=== PATIENT | female | born 1975 ===

== ENCOUNTER 2018-08-08 00:06 | Emergency (ER) | payer SELFPAY ==
[2018-08-08 00:55] VITALS: RESP 18
--- NOTE | 2018-08-08 01:12 | ED PDOC ---
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 Denies fever, headache, dizziness, nausea/vomiting, chest pain, shortness of breath, palpitations, abdominal/pelvic pain, urinary symptoms. Abnormal Vaginal Bleeding: Yes Last Menstral Period: 06/18/18 : 3 Para: 2 Past Medical History Reviewed: Historical Data, Nursing Documentation, Vital Signs Vital Signs: Last Vital Signs Temp 98.4 F 08/08/18 00:53 Pulse 78 08/08/18 00:53 Resp 18 08/08/18 00:53 BP 133/74 08/08/18 00:53 Pulse Ox 99 08/08/18 00:53 - Medical History PMH: No Chronic Diseases - Surgical History Surgical History: No Surg Hx - Family History Family History: States: No Known Family Hx - Living Arrangements Living Arrangements: With Family - Immunization History Hx Tetanus Toxoid Vaccination: No Hx Influenza Vaccination: No Hx Pneumococcal Vaccination: No - Home Medications Home Medications: Ambulatory Orders Medication Instructions Recorded Acetaminophen [Tylenol] 650 mg PO Q4 PRN #20 tab 05/08/15 - Allergies Allergies/Adverse Reactions: Allergies Allergy/AdvReac Type Severity Reaction Status Date / Time No Known Allergies Allergy Unverified 05/08/15 19:10 Review of Systems ROS Statement: Except As Marked, All Systems Reviewed And Found Negative Genitourinary Female: Positive for: Vaginal Bleeding Physical Exam - Reviewed Nursing Documentation Reviewed: Yes Vital Signs Reviewed: Yes - Physical Exam Appears: Positive for: Well, Non-toxic, No Acute Distress Head Exam: Positive for: ATRAUMATIC, NORMAL INSPECTION, NORMOCEPHALIC Skin: Positive for: Normal Color Eye Exam: Positive for: Normal appearance ENT: Positive for: Normal ENT Inspection Cardiovascular/Chest: Positive for: Regular Rate, Rhythm Respiratory: Positive for: Normal Breath Sounds Gastrointestinal/Abdominal: Positive for: Bowel Sounds, Soft. Negative for: Tenderness Pelvic Exam: Positive for: External Exam Normal, No Cerv. 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
[2018-08-08 02:32] LABS: BASO # 0.1 K/uL (0.0-0.2); BASO % 0.9 % (0.0-2.0); EOS # 0.4 K/uL (0.0-0.7); HEMOGLOBIN 12.7 g/dL (12.0-16.0); LYMPH # 2.5 K/uL (1.0-4.3); LYMPH % 24.8 % (20.0-40.0); MEAN CELL VOLUME 84.8 fl (81.0-99.0); MEAN CORPUSCULAR HEMOGLOBIN 28.5 pg (27.0-31.0); MEAN CORPUSCULAR HGB CONC 33.6 g/dL (33.0-37.0); MEAN PLATELET VOLUME 7.4 fl (7.2-11.7); MONO % 9.9 % (0.0-10.0); NEUT % 60.4 % (50.0-75.0); NRBC % 0.1 % (0.0-0.0); RBC 4.44 Mil/uL (3.80-5.20); RED CELL DISTRIBUTION WIDTH 14.1 % (11.5-14.5); WHITE BLOOD COUNT 9.9 K/uL (4.8-10.8)
[2018-08-08 02:41] LABS: ALB/GLOB RATIO 1.2 (1.0-2.1); ALBUMIN 3.7 g/dL (3.5-5.0); ALT/SGPT 21 U/L (9-52); AST/SGOT 18 U/L (14-36); BLOOD UREA NITROGEN 13 mg/dl (7-17); CALCIUM 8.5 mg/dL (8.4-10.2); GFR NON-AFRICAN AMERICAN > 60
[2018-08-08 05:44] VITALS: BP 122/68; PULSE 71; TEMP 98.2; O2SAT 100
--- NOTE | 2018-08-08 12:18 | US ---
Date of service: 08/08/2018 PROCEDURE: First trimester ultrasound HISTORY: and bleeding. B-HCG results are pending COMPARISON: None TECHNIQUE: Transvaginal only. Real -time technique with 2D, duplex and color Doppler FINDINGS: LMP: 06/18/2018 Prior examinations from the current : None. TECHNIQUE: Real-time 2D imaging, duplex and color Doppler. FINDINGS: Cardiac activity: Present Rate: 142 BPM Measurements: Ship Bottom rump length: 0.91 cm Gestational age based on CRL 6 weeks 6 days Gestational age 6 weeks 2 days based on gestational sac measurement 1.85 cm Gestational age derived from LMP: 7 weeks 2 days TONY based on LMP: 03/25/2019 TONY based on biometry: 03/30/2019. Gestational concordance documented Yolk sac identified Cervix: No Cervical abnormalities: Negative examination for cervical dilatation or effacement. Closed cervix measuring 4.05 cm Subchorionic hemorrhage: None UTERUS: 5.4 x 6.8 x 9.2 cm. ADNEXA: Right: 1.6 x 2.2 x 3.2 cm. Normal Doppler arterial waveform documented. Left: 1.5 x 2.4 x 2.4 cm. Normal Doppler arterial waveform documented Fluid in the cul-de-sac: None IMPRESSION: Six weeks 4 days live intrauterine gestation. Gestational concordance documented. Concordant results (preliminary interpretation) provided by [facility]. Procedure Completed: 01:46. Preliminary Report: Dictated and Authenticated: 03:06. Final Interpretation: 12:16. August 08, 2018
== END 2018-08-08 05:03 | disposition home or self-care (01) ==
LOC: H.ER 00:06
DX: O20.9 Hemorrhage in early pregnancy, unspecified (principal); Z3A.01 Less than 8 weeks gestation of pregnancy

== ENCOUNTER 2018-08-26 18:33 | Emergency (ER) | payer OTHER ==
[2018-08-26 18:56] VITALS: RESP 16
[2018-08-26] MEDS ORDERED: Sodium Chloride 0.9% 1,000 ML IV STA (19:13)
--- NOTE | 2018-08-26 19:15 | ED PDOC ---
HPI: Female Pain Time Seen by Provider: 08/26/18 19:08 Chief Complaint (Nursing): Female Genitourinary Chief Complaint (Provider): with vaginal bleeding History Per: Patient Additional Complaint(s): 42-year-old female currently 8 weeks presents with vaginal bleeding that started about 1 hour prior to arrival. Patient also has associated cramping pain. Patient's last menstrual cycle was June 18. Patient denies nausea or vomiting. This is her third and she has 2 children. No history of ectopic pregnancies or miscarriages. PMD: none Past Medical History Reviewed: Historical Data, Nursing Documentation, Vital Signs Vital Signs: Last Vital Signs Temp 98.8 F 08/26/18 18:52 Pulse 87 08/26/18 18:52 Resp 16 08/26/18 18:52 BP 147/89 08/26/18 18:52 Pulse Ox 100 08/26/18 18:52 - Medical History PMH: No Chronic Diseases - Surgical History Surgical History: No Surg Hx - Family History Family History: States: No Known Family Hx - Living Arrangements Living Arrangements: With Family - Social History Current smoker - smoking cessation education provided: No Alcohol: None Drugs: Denies - Home Medications Home Medications: Ambulatory Orders Medication Instructions Recorded Acetaminophen [Tylenol] 650 mg PO Q4 PRN #20 tab 05/08/15 - Allergies Allergies/Adverse Reactions: Allergies Allergy/AdvReac Type Severity Reaction Status Date / Time No Known Allergies Allergy Verified 08/26/18 18:52 Review of Systems ROS Statement: Except As Marked, All Systems Reviewed And Found Negative Genitourinary Female: Positive for: Vaginal Bleeding, Pelvic Pain. Negative for: Dysuria Physical Exam - Reviewed Nursing Documentation Reviewed: Yes Vital Signs Reviewed: Yes - Physical Exam Appears: Positive for: Well, Non-toxic, No Acute Distress Skin: Positive for: Normal Color. Negative for: Rash Eye Exam: Positive for: Normal appearance Cardiovascular/Chest: Positive for: Regular Rate, Rhythm Respiratory: Positive for: Normal Breath Sounds. Negative for: Wheezing, Respiratory Distress Gastrointestinal/Abdominal: Positive for: Soft. Negative for: Tenderness Back: Negative for: L CVA Tenderness, R CVA Tenderness Extremity: Positive for: Normal ROM Neurologic/Psych: Positive for: Alert, Oriented - ECG O2 Sat by Pulse Oximetry: 100 Pulse Ox Interpretation: Normal Medical Decision Making Medical Decision Makin-year-old female currently 8 weeks with vaginal bleeding Plan: CBC CMP Beta Urine test Urine dip TV OB US IVF Disposition - Clinical Impression Clinical Impression: Vaginal bleeding during - Patient ED Disposition Is Patient to be Admitted: Transfer of Care - Disposition Disposition: Transfer of Care Disposition Time: 20:00 Condition: FAIR Forms: [facility] (Swedish) Patient Signed Over To: Fabrizio Bejarano Handoff Comments: Signed out pending diagnostic testing results and final disposition
[2018-08-26 20:02] LABS: BASO # 0.1 K/uL (0.0-0.2); BASO % 0.9 % (0.0-2.0); EOS # 0.4 K/uL (0.0-0.7); EOS % 2.9 % (0.0-4.0); LYMPH # 2.4 K/uL (1.0-4.3); LYMPH % 19.3 % (20.0-40.0); MEAN CORPUSCULAR HEMOGLOBIN 28.5 pg (27.0-31.0); MEAN CORPUSCULAR HGB CONC 33.1 g/dL (33.0-37.0); MEAN PLATELET VOLUME 7.2 fl (7.2-11.7); MONO # 0.9 K/uL (0.0-0.8); MONO % 7.1 % (0.0-10.0); NEUT # 8.7 K/uL (1.8-7.0); NEUT % 69.8 % (50.0-75.0); RBC 4.55 Mil/uL (3.80-5.20); RED CELL DISTRIBUTION WIDTH 14.6 % (11.5-14.5); WHITE BLOOD COUNT 12.4 K/uL (4.8-10.8)
[2018-08-26 20:05] LABS: ALBUMIN 3.7 g/dL (3.5-5.0); ALT/SGPT 21 U/L (9-52); AST/SGOT 18 U/L (14-36); BLOOD UREA NITROGEN 12 mg/dl (7-17); CALCIUM 8.8 mg/dL (8.4-10.2); GFR NON-AFRICAN AMERICAN > 60
[2018-08-26 20:43] LABS: URINE BILIRUBIN NEGATIVE (NEGATIVE); URINE BLOOD LARGE (NEGATIVE); URINE CLARITY CLOUDY (Clear); URINE COLOR RED (YELLOW); URINE GLUCOSE (UA) NEG (Normal); URINE LEUKOCYTE ESTERASE NEG Leu/uL (Negative); URINE PROTEIN 100 mg/dL (NEGATIVE); URINE UROBILINOGEN 0.2-1.0 mg/dL (0.2-1.0); WBC CLUMPS MOD /hpf
[2018-08-26 20:47] LABS: URINE AMORPHOUS SEDIMENT SMALL /ul (<OCC)
--- NOTE | 2018-08-26 21:05 | ED PDOC ---
- Laboratory Results Result Diagrams: 08/26/18 19:40 08/26/18 19:40 - ECG O2 Sat by Pulse Oximetry: 100 (RA) Pulse Ox Interpretation: Normal - Progress ED Course And Treament: OB US: No IUP Previous US showed IUP. BHCG has also decreased from last visit. Case d/w Dr. 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 go to her OBGYN and do weekly BHCGs. 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 Pt. informed of results and plan. Advised to f/u with her OBGYN for weekly repeat BHCG. Pt. verbalized understanding. Also told to return to ED immediately if pain worsens or if bleeding worsens. Medical Decision Making Medical Decision Making: Time: 1999 --Patient signed out to this provider, pending US and labs. On revaluation, patient requesting pain medications for abdominal cramping. Tylenol PO ordered. Scribe Attestation: Documented by Merlene Du, acting as a scribe for Fabrizio Bejarano PA-C Provider Scribe Attestation: All medical record entries made by the Scribe were at my direction and personally dictated by me. I have reviewed the chart and agree that the record accurately reflects my personal performance of the history, physical exam, medical decision making, and the department course for this patient. I have also personally directed, reviewed, and agree with the discharge instructions and disposition. Disposition - Clinical Impression Clinical Impression: Miscarriage - POA Present On Arrival: None - Disposition Referrals: [facility] [Outside] Disposition: Routine/Home Disposition Time: 00:25 Condition: STABLE Additional Instructions: FOLLOW UP WITH YOU OBGYN FOR WEEKLY BHCG TESTING. RETURN TO ED IMMEDIATELY IF SYMPTOMS WORSEN. KEVEN LUCERO, thank you for letting us take care of you today. Your provider was Huan Moss MD and you were treated for 8 WKS /VAGINAL BLEEDING. The emergency medical care you received today was directed at your acute symptoms. If you were prescribed any medication, please fill it and take as directed. It may take several days for your symptoms to resolve. Return to the Emergency Department if your symptoms worsen, do not improve, or if you have any other problems. Please contact your doctor or call one of the physicians/clinics you have been referred to that are listed on the Patient Visit Information form that is in cluded in your discharge packet. Bring any paperwork you were given at discharge with you along with any medications you are taking to your follow up visit. Our treatment cannot replace ongoing medical care by a primary care provider outside of the emergency department. Thank you for allowing the [facility] team to be part of your care today. If you had an X-Ray or CT scan: A Radiologist will review the ED reading if any change in treatment is needed we will contact you. If you had a blood, urine, or wound culture: It will take several days for the results, if any change in treatment is needed we will contact you. If you had an STI test: It will take 48 hours for the results. Please call after 1 week if you have not heard back. Instructions: Dealing With Miscarriage, Miscarriage (DC) Forms: [employer] (Kiswahili) Print Language: DANISH
[2018-08-27 01:07] VITALS: BP 141/68; PULSE 77; TEMP 99
[2018-08-27 03:07] VITALS: O2SAT 100
--- NOTE | 2018-08-27 10:09 | US ---
Date of service: 08/26/2018 PROCEDURE: OB Pelvic Ultrasound HISTORY: 8 weeks , vaginal bleeding LMP: 06/18/2018 Serum beta HCG 3788.5 COMPARISON: Pelvic ultrasound dated 08/08/2018 FINDINGS: UTERUS: Uterus measures 9.5 x 5.5 x 6.2 cm. Anteverted. Normal in size and appearance. Anterior fundal fibroid measuring 1.9 x 1.5 x 2.0 cm. Endometrium measures 10 mm. Intrauterine gestation no longer identified. CERVIX: Measures 4 cm. Long and closed. No cervical abnormality seen. RIGHT OVARY: Measures 2.7 x 1.2 x 2.0 cm. No mass lesion. Normal flow. LEFT OVARY: Measures 2.7 x 1.5 x 2.9 cm. No solid mass. Normal flow. FREE FLUID: None. OTHER FINDINGS: None. IMPRESSION: Intrauterine gestation no longer identified consistent with completed miscarriage.
== END 2018-08-27 01:00 | disposition home or self-care (01) ==
LOC: H.ER 18:33
DX: O03.9 Complete or unspecified spontaneous abortion without complication (principal); Z36.9 Encounter for antenatal screening, unspecified; Z3A.08 8 weeks gestation of pregnancy
CPT/HCPCS: 76815; 80053; 81003; 84702; 85025; 87086; 96360; 99284; J7030